=== PATIENT | female | born 1965 ===

== ENCOUNTER 2022-02-15 21:53 | Emergency (ER) | payer BC ==
[2022-02-16 00:05] VITALS: BP 150/67; PULSE 70
== END 2022-02-16 00:04 | disposition home or self-care (01) ==
LOC: MW.ED 21:53
DX: M23.91 Unspecified internal derangement of right knee (principal); Z91.018 Allergy to other foods; Z91.013 Allergy to seafood
CPT/HCPCS: 73562-26-RT; 73562-RT; 99282; 99283